=== PATIENT | male | born 1960 | race Caucasian/White ===

== ENCOUNTER → 2021-04-05 | Outpatient (CLI) | payer OTHER ==
[~2021-04-05] MED LIST: ACETAMINOPHEN-1 EAC1 PO; AMOX TR-K CLV1 EACH PO; ASPIRIN EC81 MG PO; ATORVASTATIN CA20 MG PO; CARVEDILOL3.125 MG PO; CLOPIDOGREL75 MG PO; FLORASTOR250 MG PO; FLUZONE QU60 MCG/018 IM; IBUPROFEN600 MG PO; MONOCAPS TABLE1 EACH PO; OMNICEF 300 MG300 MG PO; PROTONIX 40 MG40 M1 PO; SIMVASTATIN10 MG PO; VITAMIN B-1100 MG PO; VOLTAREN EC 7575 MG PO; ZITHROMAX500 MG PO; ZOCOR10 MG PO
[2021-04-08 07:11] LABS: QUANTIFERON MITOGEN VALUE >10.00 IU/mL (.); QUANTIFERON-TB GOLD PLUS Negative (Negative)
== END ==
LOC: LAB 12:24
PROVIDERS: Family Medicine
DX: Z20.1 Contact with and (suspected) exposure to tuberculosis (principal)
CPT/HCPCS: 36415

== ENCOUNTER → 2021-07-02 | Outpatient (CLI) | payer OTHER ==
[2021-07-09 05:09] LABS: QUANTIFERON MITOGEN VALUE >10.00 IU/mL (.); QUANTIFERON NIL VALUE 0.06 IU/mL (.); QUANTIFERON TB1 AG VALUE 0.06 IU/mL (.); QUANTIFERON TB2 AG VALUE 0.07 IU/mL (.); QUANTIFERON-TB GOLD PLUS Negative (Negative)
== END ==
LOC: LAB 11:50
PROVIDERS: Family Medicine
DX: Z11.1 Encounter for screening for respiratory tuberculosis (principal)
CPT/HCPCS: 36415

== ENCOUNTER → 2022-07-01 | Outpatient (CLI) | payer OTHER | LOC: LAB 08:29 | DX: Z00.00 Encounter for general adult medical examination without abnormal findings (principal); E78.00 Pure hypercholesterolemia, unspecified | CPT/HCPCS: 36415; 80061 ==